=== PATIENT | female | born 1995 | race Two or more races ===

== ENCOUNTER 2017-06-20 15:34 | Emergency (ER) | payer OTHER, MEDICAID ==
[~2017-06-20] VITALS: Ht 154.9 cm; Wt 83.9 kg
[~2017-06-20 15:34] MED LIST: ALBUTEROL SULF8.5 GM INH; AMOXICILLIN500 MG PO; CLEOCIN150 MG PO; KEFLEX500 MG ORAL; NKM; TOBRADEX EYE DRO5 ML LEFT EYE
[2017-06-20 15:48] VITALS: BP 113/74
[2017-06-20 16:13] LABS: LYMPHOCYTES % (AUTO) 32.8 % (20.0-45.0); MEAN CORPUSCULAR HEMOGLOBIN 30.6 PG (27.0-31.0); MEAN CORPUSCULAR HGB CONC 32.6 G/DL (32.0-36.0); MEAN CORPUSCULAR VOLUME 94 FL (80-99); MEAN PLATELET VOLUME 5.2 FL (6.5-10.1); NEUTROPHILS % (AUTO) 57.3 % (45.0-75.0); PLATELET COUNT 349 K/UL (150-450); RED BLOOD COUNT 4.31 M/UL (4.20-5.40); RED CELL DISTRIBUTION WIDTH 10.7 % (11.6-14.8); WHITE BLOOD COUNT 11.3 K/UL (4.8-10.8)
[2017-06-20 16:14] LABS: BASOPHILS % (AUTO) 1.2 % (0.0-2.0); EOSINOPHILS % (AUTO) 2.5 % (0.0-3.0); MONOCYTES % (AUTO) 6.3 % (1.0-10.0)
[2017-06-20 16:19] LABS: APPEARANCE,URINE CLEAR; KETONES,URINE NEGATIVE (NEGATIVE); LEUKOCYTE ESTERASE ,URINE 2+ (NEGATIVE); NITRITE,URINE NEGATIVE (NEGATIVE); PH,URINE 7 (4.5-8.0); PROTEIN,URINE NEGATIVE (NEGATIVE); UROBILINOGEN,URINE NORMAL MG/DL (0.0-1.0)
[2017-06-20 16:23] LABS: PROTHROMBIN TIME 10.2 SEC (9.30-11.50)
[2017-06-20 16:27] LABS: ALANINE AMINOTRANSFERASE 15 U/L (3-33); ALBUMIN/GLOBULIN RATIO 1.6 (1.0-2.7); ANION GAP 13 (5-15); ASPARTATE AMINO TRANSFERASE 15 U/L (5-40); CALCIUM 9.5 mg/dL (8.6-10.2); CARBON DIOXIDE 26 mEQ/L (20-30); CHLORIDE 102 mEQ/L (98-107); CREATININE 1.2 mg/dL (0.5-0.9); GLOMERULAR FILTRATION RATE 57.9 mL/min (>60); HEMOLYSIS 5; LIPASE 20 U/L (< 60); POTASSIUM 3.8 mEQ/L (3.4-4.9); SODIUM 141 mEQ/L (135-145); TOTAL PROTEIN 7.2 g/dL (6.6-8.7)
[2017-06-20 16:39] LABS: BACTERIA,URINE OCCASIONAL /HPF; RBC,URINE 0-2 /HPF (0 - 2); SQUAMOUS EPITHELIAL CELL,UR MODERATE /LPF (NONE/OCC)
[2017-06-20] MEDS ORDERED: TYLENOL EXTRA500 MG ORAL (18:19)
[2017-06-20] MEDS ORDERED: CEPHALEXIN500 MG ORAL (18:19)
[2017-06-20 19:26] VITALS: BP 113/74
--- NOTE | 2017-06-20 21:16 | Emergency Room Report ---
History of Present Illness General Chief Complaint: Pain Source: Patient Present Illness HPI The patient is a 21-year-old female presenting for lower back and lower abdominal pain which began one week prior. The patient states that her last normal menstrual period was 3 months prior and she has been sexually active. She did not take a test. She then developed bleeding and noticed some tissue passing 2 months prior. She has not had any bleeding since then. Pain is an 8/10 dull ache with no known provoking relieving factors. She denies any other symptoms including nausea, vomiting, fever, chills, vaginal discharge, headache, dizziness Allergies: Coded Allergies: No Known Allergies (Unverified , 06/25/12) Patient History Past Medical History: see triage record Pertinent Family History: none Now: No Reviewed Nursing Documentation: PMH: Agreed, PSxH: Agreed Nursing Documentation-PMH Past Medical History: No History, Except For Hx Gastrointestinal Problems: Yes - OVARIAN CYST Review of Systems All Other Systems: negative except mentioned in HPI Physical Exam Vital Signs Date Time Temp Pulse Resp B/P (MAP) Pulse Ox O2 Delivery O2 Flow Rate FiO2 06/20/17 15:37 97.9 72 20 113/74 99 Room Air Sp02 EP Interpretation: reviewed, normal General Appearance: no apparent distress, alert, GCS 15, non-toxic Head: normocephalic, atraumatic Eyes: bilateral eye normal inspection, bilateral eye PERRL ENT: hearing grossly normal, normal pharynx, no angioedema, normal voice Gastrointestinal: normal bowel sounds, no guarding, tenderness - suprapubic Rectal: deferred Genitourinary: normal inspection, no CVA tenderness Musculoskeletal: back normal, gait/station normal, normal range of motion, non- tender Neurologic: alert, oriented x3, responsive, motor strength/tone normal, sensory intact, speech normal Psychiatric: judgement/insight normal, memory normal, mood/affect normal, no suicidal/homicidal ideation Skin: normal color, no rash, warm/dry, well hydrated Medical Decision Making PA Attestation Dr. Holley is my supervising physician. Patient management was discussed with my supervising physician Diagnostic Impression: Primary Impression: Retained products of conception ER Course The patient is a 21-year-old female presenting for abdominal pain Differential diagnoses considered but not limited to: Appendicitis, gastroenteritis, PID, UTI, ectopic , retained products, among others Physical exam: Afebrile. Apparent distress There is tenderness to palpation over suprapubic region only. No CVA tenderness Urinalysis shows white blood cells Pelvic ultrasound has findings consistent with retained products of conception The patient was informed of these findings and to followup with her cheesemaking laborer as soon as possible. She may need D&C She is placed on antibiotics. She is given precautions to return including fever or increased pain Laboratory Tests Test 06/20/17 15:45 06/20/17 16:00 Urine Color Pale yellow Urine Appearance Clear Urine pH 7 (4.5-8.0) Urine Specific Johnson 1.010 (1.005-1.035) Urine Protein Negative (NEGATIVE) Urine Glucose (UA) Negative (NEGATIVE) Urine Ketones Negative (NEGATIVE) Urine Occult Blood 1+ (NEGATIVE) H Urine Nitrite Negative (NEGATIVE) Urine Bilirubin Negative (NEGATIVE) Urine Urobilinogen Normal MG/DL (0.0-1.0) Urine Leukocyte Esterase 2+ (NEGATIVE) H Urine RBC 0-2 /HPF (0 - 2) Urine WBC 5-10 /HPF (0 - 2) H Urine Squamous Epithelial Cells Moderate /LPF (NONE/OCC) H Urine Bacteria Occasional /HPF (NONE) Urine HCG, Qualitative Negative White Blood Count 11.3 K/UL (4.8-10.8) H Red Blood Count 4.31 M/UL (4.20-5.40) Hemoglobin 13.2 G/DL (12.0-16.0) Hematocrit 40.5 % (37.0-47.0) Mean Corpuscular Volume 94 FL (80-99) Mean Corpuscular Hemoglobin 30.6 PG (27.0-31.0) Mean Corpuscular Hemoglobin Concent 32.6 G/DL (32.0-36.0) Red Cell Distribution Width 10.7 % (11.6-14.8) L Platelet Count 349 K/UL (150-450) Mean Platelet Volume 5.2 FL (6.5-10.1) L Neutrophils (%) (Auto) 57.3 % (45.0-75.0) Lymphocytes (%) (Auto) 32.8 % (20.0-45.0) Monocytes (%) (Auto) 6.3 % (1.0-10.0) Eosinophils (%) (Auto) 2.5 % (0.0-3.0) Basophils (%) (Auto) 1.2 % (0.0-2.0) Prothrombin Time 10.2 SEC (9.30-11.50) Prothrombin Time INR 1.0 (0.9-1.1) PTT 33 SEC (23-33) Sodium Level 141 mEQ/L (135-145) Potassium Level 3.8 mEQ/L (3.4-4.9) Chloride Level 102 mEQ/L (98-107) Carbon Dioxide Level 26 mEQ/L (20-30) Anion Gap 13 (5-15) Blood Urea Nitrogen 12 mg/dL (7-23) Creatinine 1.2 mg/dL (0.5-0.9) H Estimate Glomerular Filtration Rate 57.9 mL/min (>60) Glucose Level 92 mg/dL (74-106) Calcium Level 9.5 mg/dL (8.6-10.2) Total Bilirubin 0.2 mg/dL (0.0-1.2) Aspartate Amino Transferase (AST) 15 U/L (5-40) Alanine Aminotransferase (ALT) 15 U/L (3-33) Alkaline Phosphatase 87 U/L (35-104) Total Protein 7.2 g/dL (6.6-8.7) Albumin 4.5 g/dL (3.5-5.2) Globulin 2.7 g/dL Albumin/Globulin Ratio 1.6 (1.0-2.7) Lipase 20 U/L (< 60) Human Chorionic Gonadotropin, Quant < 1 mIU/mL Lab Results Impression CBC, CMP unremarkable UA: WBCs beta hCG negative CT/MRI/US Diagnostic Results CT/MRI/US Diagnostic Results : Imaging Test Ordered: OB US Impression Consistent with retained products of conception Last Vital Signs Date Time Temp Pulse Resp B/P (MAP) Pulse Ox O2 Delivery O2 Flow Rate FiO2 06/20/17 19:26 97.9 72 20 113/74 99 Room Air Status: improved Disposition: HOME, SELF-CARE Condition: Improved Scripts Acetaminophen* (TYLENOL EXTRA STRENGTH*) 500 Mg Tablet 500 MG ORAL Q8H Y for Prn Headache/Temp > 101, #30 TAB 0 Refills Prov: JERED PRATER P.A. 06/20/17 Cephalexin* (KEFLEX*) 500 Mg Capsule 500 MG ORAL EVERY 6 HOURS, #28 CAP Prov: TERZIAN,JERED P.A. 06/20/17 Patient Instructions: Miscarriage Additional Instructions: The patient was informed she needs to followup with cheesemaking laborer as soon as possible. She was informed to return to emergency department if she experiences increased pain, fever, chills, significant bleeding, or for any other reason. JERED PRATER Jun 20, 2017 21:16
--- NOTE | 2017-06-21 10:31 | Diagnostic Imaging Report ---
Indication: Pelvic pain Technique: Transabdominal and transvaginal images Comparison: 12/05/2015 Findings: Uterus is retroflexed, measures 7.6 cm length by 3.1 cm AP. Endometrium measures 12 mm thick. Debris and fluid are seen within the endometrium as well. The possibility of a 13 x 6 mm polyp should be considered. No myometrial right ovary measures 2.3 cm length. Left ovary measures 2.9 cm length. No adnexal mass. No free cul-de-sac fluid. Impression: Mildly prominent endometrium.. Small amount of debris and fluid seen within the endometrium, nonspecific, indicate blood, less likely infection. The possibility of an endometrial polyp should also be considered Negative for adnexal mass
== END 2017-06-20 18:30 | disposition home or self-care (01) ==
LOC: EMR 16:31
DX: O02.1 Missed abortion (principal)
CPT/HCPCS: 36415; 76830; 76856; 80053; 81003; 81025; 83690; 84702; 85025; 85610; 85730; 96360; 99284

== ENCOUNTER 2019-03-27 01:47 | Emergency (ER) | payer MEDICAID, OTHER ==
[~2019-03-27] VITALS: Ht 154.9 cm; Wt 91.6 kg
[~2019-03-27 01:47] MED LIST changes: +CEPHALEXIN500 MG ORAL; +TYLENOL EXTRA500 MG ORAL
--- NOTE | 2019-03-27 02:07 | NUR ---
ED Nurse Note: Patient walked in to ER c/o lower abdominal pain 02/01. Per patient she did test and it was positive. Since this Monday patient noticed spotting, and today it get worse. AAO x4, VSS at this time, skin is dry warm to touch.
--- NOTE | 2019-03-27 02:29 | Emergency Room Report ---
History of Present Illness General Chief Complaint: Complications Source: Patient Present Illness HPI Is a 23-year-old female with history of irregular menstruation. She presents with chief amount of vaginal bleeding. She had a menstruation in January. Did not get one in February. She had a test that was negative in February. She checked it again couple weeks later was positive. Now she noticed some spotting yesterday and now more heavier bleeding. [place] crampy pain. No nausea no vomiting. No fever chills. Denies any other complaint. Allergies: Coded Allergies: No Known Allergies (Unverified , 03/27/19) Patient History Past Medical History: see triage record, old chart reviewed Past Surgical History: none Pertinent Family History: none Social History: Denies: smoking Last Menstrual Period: 02/11/19 Now: Yes : 3 Para: 0 Immunizations: other Reviewed Nursing Documentation: PMH: Agreed; PSxH: Agreed Nursing Documentation-PMH Past Medical History: No Stated History Hx Gastrointestinal Problems: Yes - OVARIAN CYST Review of Systems Eye: Denies: eye pain, blurred vision ENT: Denies: ear pain, nose congestion, throat swelling Respiratory: Denies: cough, shortness of breath Cardiovascular: Denies: chest pain, palpitations Gastrointestinal: Denies: abdominal pain, diarrhea, nausea, vomiting Musculoskeletal: Denies: back pain, joint pain Skin: Denies: rash Neurological: Denies: headache, numbness Endocrine: Denies: increased thirst, increased urine Hematologic/Lymphatic: Denies: easy bruising All Other Systems: negative except mentioned in HPI Physical Exam Vital Signs Date Time Temp Pulse Resp B/P (MAP) Pulse Ox O2 Delivery O2 Flow Rate FiO2 03/27/19 01:51 98.4 82 18 114/77 (89) 97 Room Air Vitals normal Sp02 EP Interpretation: reviewed, normal General Appearance: well appearing, no apparent distress, alert Head: normocephalic, atraumatic Eyes: bilateral eye PERRL, bilateral eye EOMI ENT: hearing grossly normal, normal pharynx Neck: full range of motion, supple, no meningismus Respiratory: chest non-tender, lungs clear, normal breath sounds Cardiovascular #1: regular rate, rhythm, no murmur Gastrointestinal: normal bowel sounds, non tender, no mass, no organomegaly, no bruit, non-distended Musculoskeletal: back normal, gait/station normal, normal range of motion Psychiatric: mood/affect normal Medical Decision Making Diagnostic Impression: Primary Impression: Spontaneous ER Course Patient presents with vaginal bleeding. Urine and blood hCG negative here. She says she had a couple of positive test at home. This is most likely a completed . Abdomen exam is benign. I see no need for emergent ultrasound at this moment in time. Will discharge home. Last Vital Signs Date Time Temp Pulse Resp B/P (MAP) Pulse Ox O2 Delivery O2 Flow Rate FiO2 03/27/19 01:51 98.4 82 18 114/77 (89) 97 Room Air Status: unchanged Disposition: HOME, SELF-CARE Condition: Stable Scripts Ibuprofen* (MOTRIN*) 600 Mg Tablet 600 MG ORAL THREE TIMES A DAY, #30 TAB 0 Refills Prov: Zaheer Mai MD 03/27/19 Referrals: NOT CHOSEN [facility]/,REFERRING (PCP) Additional Instructions: Follow-up with your doctor in 7 days. Return if worse. Zaheer Mai MD Mar 27, 2019 02:29
--- NOTE | 2019-03-27 02:35 | NUR ---
ED Nurse Note: urine and blood collected sent down
[2019-03-27 02:49] LABS: APPEARANCE,URINE CLEAR; BILIRUBIN, URINE NEGATIVE (NEGATIVE); COLOR,URINE PALE YELLOW; GLUCOSE, URINE (UA) NEGATIVE (NEGATIVE); KETONES,URINE 1+ (NEGATIVE); LEUKOCYTE ESTERASE ,URINE NEGATIVE (NEGATIVE); NITRITE,URINE NEGATIVE (NEGATIVE); PH,URINE 6 (4.5-8.0); PROTEIN,URINE NEGATIVE (NEGATIVE); UROBILINOGEN,URINE NORMAL MG/DL (0.0-1.0)
[2019-03-27 02:57] LABS: ANION GAP 9 mmol/L (5-15); BLOOD UREA NITROGEN 10 mg/dL (7-18); CALCIUM 9.3 MG/DL (8.5-10.1); CARBON DIOXIDE 26 MMOL/L (21-32); CHLORIDE 105 MMOL/L (98-107); CREATININE 0.8 MG/DL (0.55-1.30); POTASSIUM 3.3 MMOL/L (3.5-5.1); SODIUM 140 MMOL/L (136-145)
[2019-03-27 03:01] LABS: BASOPHILS % (AUTO) 0.9 % (0.0-2.0); EOSINOPHILS % (AUTO) 0.2 % (0.0-3.0); HEMATOCRIT 39.7 % (37.0-47.0); HEMOGLOBIN 13.7 G/DL (12.0-16.0); LYMPHOCYTES % (AUTO) 22.4 % (20.0-45.0); MEAN CORPUSCULAR VOLUME 90 FL (80-99); NEUTROPHILS % (AUTO) 71.5 % (45.0-75.0); PLATELET COUNT 360 K/UL (150-450); RED BLOOD COUNT 4.41 M/UL (4.20-5.40); RED CELL DISTRIBUTION WIDTH 10.8 % (11.6-14.8); WHITE BLOOD COUNT 13.7 K/UL (4.8-10.8)
[2019-03-27] MEDS ORDERED: IBUPROFEN600 MG ORAL (03:24)
[2019-03-27 03:30] VITALS: BP 114/77
--- NOTE | 2019-03-27 03:30 | NUR ---
ER DISCHARGE NOTE: Patient is cleared to be discharged per ERMD, pt is aox4, on room air, with stable vital signs. pt was given dc and prescription instructions, pt was able to verbalize understanding, pt id band and iv site removed without complications. pt is able to ambulate with steady gait. pt took all belongings.
== END 2019-03-27 03:35 | disposition home or self-care (01) ==
LOC: EMR 02:25
DX: O03.9 Complete or unspecified spontaneous abortion without complication (principal)
CPT/HCPCS: 36415; 80048; 81003; 81025; 84702; 85025; 99284